=== PATIENT | male | born 2005 | race Caucasian/White ===

== ENCOUNTER 2025-02-03 08:23 | Emergency (ER) | payer MEDICAID, SELFPAY ==
--- NOTE | ~2025-02-03 | XR_ITS ---
EXAMINATION: XR FINGERS RIGHT HISTORY: crush injury distal phalanx COMPARISON: There are no prior studies available for comparison. FINDINGS: Three views of the right index finger are submitted. Osseous mineralization is normal. There is no fracture or dislocation. The joint spaces are preserved. The soft tissues are unremarkable. XR/XR finger RT min 2V IMPRESSION: Unremarkable examination of the right index finger. Electronically signed by: Tarun Nava MD 02/03/2025 09:50 AM EDT
[2025-02-03 08:29] VITALS: BP 111/61; PULSE 68; RESP 16; TEMP 37.1; BMI 21.7
--- NOTE | 2025-02-03 09:18 | ED.EXTPRO ---
HPI - Extremity Problem General Chief complaint: Extremity Injury, Upper Stated complaint: right hand, finger pain swollen Time Seen by Provider: 02/03/25 09:13 Source: patient Mode of arrival: ambulatory Limitations: no limitations History of Present Illness ED Provider: Teresa Galvan PA-C HPI Narrative: Patient seeks medical attention at the emergency department today for evaluation of crush injury to his right distal index finger. 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 Patient reports it did not break anything, he did not think much of it however as he continued to have some discomfort and bruising so he had sought medical attention for it today. He did júnior tape it and ice it, but otherwise no other interventions. Patient is right-hand dominant. Does have slight paresthesias but denies complete numbness. He is able to bend it but hurts at the DIP joint. He denies any prior trauma to this area in the past. No other injuries reported. Tetanus up-to-date. Related Data Previous Rx's ?Medication ?Instructions ?Recorded cephalexin 500 mg capsule 500 mg PO TID #21 caps 02/03/25 Allergies Allergy/AdvReac Type Severity Reaction Status Date / Time No Known Allergies Allergy Verified 02/05/25 10:01 Review of Systems Review of Systems: Yes all other systems are reviewed and are negative PMFSH Past Medical History Attestation statement: The following information was validated with the patient. Source: old records reviewed and nursing notes reviewed Social History Social History Advance Directives: No Advance Directives Information Provided: No Do you have a plan to hurt others: No Plan Physical Exam Vital Signs: Vital Signs: Last Vital Signs Temp 98.2 F 02/03/25 10:38 Pulse 57 02/03/25 10:38 Resp 16 02/03/25 10:38 BP 102/57 L 02/03/25 10:38 Pulse Ox 97 02/03/25 10:38 O2 Del Method Room Air 02/03/25 10:38 BMI result Body Mass Index 21.7 Left upper extremity: NOrmal ROM, sensation, and strength 4+, RIGHT upper extremity within normal limits with exception to right index finger:distal phalanx TTP with mild ecchymosis pain at DIP joint with flexion, able to perform finger opposition, no break in skin, cap refill < 3 secs, distal pulses 2+, nontender elsewhere, erythema along proximal nailfold approx 3mm not paroncyhia or felon Const: General: cooperative, healthy appearing, comfortable, no acute distress, well developed, alert, awake and Physically active Nutritional Appearance: average body habitus Orientation/consciousness: patient oriented x3 Limitations: no limitations Neuro: General: patient oriented x3 Medical Decision Making Medical Decision Making MDM Narrative: Patient presents to ED today for evaluation of right index finger pain . TIA is crush injury. This is work but school externship related. H and P as above. Patient is afebrile with stable vitals and well-appearing. History and physical as stated above. Patient is neurovascular intact in the affected extremity. X-rays were obtained to further evaluate. At this time no evidence of NVC to warrant further work up/ intervention or consult. They show no acute fractures. Patient's symptoms are consistent with a contusion/sprain. Patient's right index was placed in a static flexed splint. Discussed icing it, elevating and alternating ibuprofen and Tylenol for discomfort. He does have erythema along proximal nailfold which could be inflammatory however given metal crush injury will cover with abx. TD is UTD. Discussed that there is no significant improvement in the next 1 to 2 weeks to follow-up with an orthopedic clinic, information given. Discussed symptomatic treatment with the patient. Discussed return precautions. Patient verbalized understanding of the above plan and is in agreement with the above plan. The patient was discharged home in stable condition with return precautions. Differential Diagnosis Differential Diagnoses: The differential diagnosis associated with the presentation includes tuft fracture dislocation avulsion fracture ligamentous injury Admission/Observation Consideration of admission/observation: Escalation of care including admission/observation considered Patient would have been admitted to the hospital had his work up had any findings where hospital admission was appropriate and his clinical presentation warranted hospital admission. Independent Interpretation I performed an independent interpretation of an: Plain X-Ray Interpretation: no fracture or dislocation Radiology Impression Discussion of test interpretation with radiology: I have reviewed the radiologist's reading. Discharge Plan Discharge Clinical Impression: Crushing injury of right index finger, initial encounter, Cellulitis of right index finger Patient Disposition: Home, Self-Care Instructions: Crush Injury (ED) Additional Instructions: A contusion is a deep bruise. there is some redness around the area which could be concerning for early signs of potential infection especially given her mechanism of injury we will place you on antibiotics.This is a result of an injury that causes bleeding under the skin. Symptoms of bruising include pain, swelling, and discolored skin. This skin may turn blue, purple, or yellow. To manage stiffness, pain, and swelling use RICE: rest, ice, compression, and elevation of affected area if possible. DO NOT PUT ICE directly onto skin, this can cause a burn. Instead, place ice in a plastic bag, and place a towel between the skin and the bag. Leave on for 20 minutes, 2-3 x a day. Take [id number] and/ or prescription medication as advised. Call or return right away if: pain worsens, numbness, or area turns pale or cold. Use the splint for the next 3-5 days. After this you may use júnior taping for another few days if needed. Try and perform some range of motion exercises to prevent worsening stiffness. Ice for 20 minutes at a time, 3-4x daily, for the next 48 hours. If after the next 7-10 days the finger is not better please follow-up with one of the orthopedic groups below. Prescriptions: New cephalexin 500 mg capsule 500 mg PO TID Qty: 21 0RF Referrals: [facility] [place] [facility] Sur[facility] [Provider Group] Referral Note: crush injury no fracture right index finger Stand Alone Forms: Work/School Release Interventions: ED Discharge Assessment Last Done: 02/03/25 10:38 Discharge Date/Time: 02/03/25 10:39 Print Language: French
[2025-02-03 10:33] VITALS: BP 102/57; PULSE 57; RESP 16; TEMP 36.8; O2SAT 97
[2025-02-03 10:38] VITALS: BP 102/57; PULSE 57; RESP 16; TEMP 36.8; O2SAT 97
== END 2025-02-03 10:39 | disposition home or self-care (01) ==
PROVIDERS: Emergency Provider Emergency Medicine
DX: S67.190A Crushing injury of right index finger, initial encounter (principal); L03.011 Cellulitis of right finger; Y29.XXXA Contact with blunt object, undetermined intent, initial encounter; Y93.9 Activity, unspecified; Y92.9 Unspecified place or not applicable; Y99.0 Civilian activity done for income or pay
CPT/HCPCS: 29130; 73140; 99283; 99284

== ENCOUNTER → 2025-02-03 09:18 | Outpatient (BNV) | payer MEDICAID, SELFPAY | PROVIDERS: Emergency Provider Emergency Medicine; Visit Provider Radiology Diagnostic Radiology | DX: M79.644 Pain in right finger(s) (principal) | CPT/HCPCS: 73140 ==

== ENCOUNTER 2025-02-05 09:54 | Emergency (ER) | payer MEDICAID, SELFPAY ==
--- NOTE | ~2025-02-05 | XR_ITS ---
EXAMINATION: XR ANKLE, LEFT CLINICAL INFORMATION: lt ankle injury COMPARISON: None available. TECHNIQUE: AP, lateral, and mortise views of the left ankle. FINDINGS: No fracture. Alignment is anatomic. No erosions. Joint spaces are maintained. Soft tissues are normal. XR/XR ankle LT min 3V IMPRESSION: Normal left ankle. Electronically signed by: Manny Victoria MD 02/05/2025 10:24 AM EDT
[2025-02-05 09:59] VITALS: BP 117/57; PULSE 63; RESP 16; TEMP 36.7; O2SAT 98; BMI 22.0
--- NOTE | 2025-02-05 10:17 | ED.LOWEXIN ---
HPI - Extremity Injury (Lower) General Chief Complaint: Extremity Injury, Lower Stated Complaint: Pain in left ankle Time Seen by Provider: 02/05/25 10:09 Source: patient Mode of arrival: ambulatory Limitations: no limitations History of Present Illness ED Provider: Kari Sullivan NP HPI Narrative: Patient is a 20-year-old male who presents emergency department for evaluation. Reports that yesterday he was playing basketball he jumped up when he came down he believes he landed the wrong way as he felt a sudden crack to the lateral aspect of his left ankle with the associated pain and swelling. Presents emergency department today as symptoms did not resolve overnight. Did not take any OTC analgesics. No ice application. Denies any numbness or tingling. No prior injury to this ankle to his knowledge Related Data Previous Rx's ?Medication ?Instructions ?Recorded cephalexin 500 mg capsule 500 mg PO TID #21 caps 02/03/25 Allergies Allergy/AdvReac Type Severity Reaction Status Date / Time No Known Allergies Allergy Verified 02/05/25 10:01 Review of Systems Review of Systems: Yes all other systems are reviewed and are negative [facility] Past Medical History Attestation statement: The following information was validated with the patient. Source: old records reviewed Physical Exam Exam: Exam: Appearance: Alert.?Oriented to person, place and time. No acute distress.?Normal affect..?? CVS: Heart sounds normal. Normal heart rate and rhythm.? Pulses normal.?? Respiratory: No respiratory distress.? Lung sounds clear to auscultation bilaterally?? Skin: Skin warm and dry.? Normal skin color.? Extremities: Localized edema to the left lateral malleolus without erythema or warmth. No rashes or lesions. No obvious deformity.? No calf ttp. 2+ DP/PT pulse bilaterally. No tenderness upon palpation over the metatarsals, nor notable deformity Neuro: Moves all extremities spontaneously. Sensation intact bilaterally. Ambulates with antalgic gait. Vital Signs: Vital Signs: Last Vital Signs Temp 98.0 F 02/05/25 09:59 Pulse 63 02/05/25 09:59 Resp 16 02/05/25 09:59 BP 117/57 L 02/05/25 09:59 Pulse Ox 98 02/05/25 09:59 O2 Del Method Room Air 02/05/25 09:59 BMI result Body Mass Index 22.0 Medical Decision Making Medical Decision Making [facility] Narrative: Patient is a 20-year-old male who presents emergency department for evaluation of traumatic left ankle pain as per HPI. Pain is primarily localized over the lateral aspect, with mild localized swelling otherwise no deformity. Extremity is neurovascularly intact distally. He is ambulatory with a slightly antalgic gait. XR imaging was obtained does not show evidence of acute fracture dislocation. Suspect at this time symptoms secondary to ankle sprain. Advised conservative treatment, provided with an Aircast for ankle support in addition to crutches. Reviewed strict return precautions, outpatient follow-up with primary care provider. All questions answered. Differential Diagnosis Differential Diagnoses: The differential diagnosis associated with the presentation includes (See narrative above) Independent Interpretation I performed an independent interpretation of an: Plain X-Ray (See narrative above) Radiology Impression Discussion of test interpretation with radiology: I have reviewed the radiologist's reading. Radiologist Impression: TECHNIQUE: AP, lateral, and mortise views of the left ankle. FINDINGS: No fracture. Alignment is anatomic. No erosions. Joint spaces are maintained. Soft tissues are normal. XR/XR ankle LT min 3V IMPRESSION: Normal left ankle. External Record Review External record reviewed: Outpatient record Prescription Management I considered prescription management with: Pain Medication (Acetaminophen/ibuprofen) Discharge Plan Discharge Clinical Impression: Ankle sprain and strain Patient Disposition: Home, Self-Care Instructions: Ankle Sprain (ED), Crutch Instructions (ED), P.R.I.C.E. Treatment (ED) Additional Instructions: X-ray does not show evidence of fracture or dislocation to your ankle. Please be sure to rest over the next few days. Apply ice for 10 15 minutes 4-6 times daily. Elevate your legs above the level of your chest. Refrain from physical activity/sports until pain has resolved. As discussed, this can sometimes take a few weeks to fully improve. You can take ibuprofen 200 mg, 3 tablets (600mg) every 6-8 hours as needed for pain, in addition to Tylenol 500 mg, 2 tablets (1,000mg) every 4-6 hours as needed for pain, but not to exceed 3 doses daily (3,000mg).? Follow-up with your primary care doctor. Return with any new or worsening symptoms or concerns Prescriptions: No Action cephalexin 500 mg capsule 500 mg PO TID Qty: 21 0RF Referrals: Physician,None [Primary Care Provider, Medical] Print Language: Slovenian
[2025-02-05 10:52] VITALS: BP 117/57; PULSE 63; RESP 16; TEMP 36.7; O2SAT 98
== END 2025-02-05 10:53 | disposition home or self-care (01) ==
PROVIDERS: Emergency Provider Emergency Medicine
DX: S93.402A Sprain of unspecified ligament of left ankle, initial encounter (principal); S96.912A Strain of unspecified muscle and tendon at ankle and foot level, left foot, initial encounter; X50.1XXA Overexertion from prolonged static or awkward postures, initial encounter; M25.572 Pain in left ankle and joints of left foot; Y93.67 Activity, basketball; Y92.310 Basketball court as the place of occurrence of the external cause; Y99.8 Other external cause status
CPT/HCPCS: 73610; 99283

== ENCOUNTER → 2025-02-05 10:08 | Outpatient (BNV) | payer MEDICAID, SELFPAY | PROVIDERS: Emergency Provider Emergency Medicine; Visit Provider Radiology Diagnostic Radiology | DX: S99.912A Unspecified injury of left ankle, initial encounter (principal) | CPT/HCPCS: 73610 ==